=== PATIENT | male | born 1965 | race Caucasian/White ===

== ENCOUNTER 2022-12-17 20:52 | Emergency (ER) | payer SELFPAY ==
[2022-12-17 21:18] LABS: #Basophils 0.1 thou/uL (0.0-0.2); #Eosinphils 0.2 thou/uL (0.0-0.7); #Lymphocytes 2.1 thou/uL (1.20-3.40); #Monocytes 0.4 thou/uL (0.11-0.59); #Neutrophils 3.2 thou/uL (1.40-6.50); %Basophils 1.6 % (0.0-1.0); %Eosinophils 2.9 % (0.0-10.0); %Lymphocytes 35.4 % (21.0-51.0); %Monocytes 7.2 % (0.0-10.0); %Neutrophils 52.9 % (42.0-75.0); Hematocrit 44.1 % (42.0-52.0); Hemoglobin 14.9 g/dL (14.0-18.0); Mean Corpuscular HGB CONC 33.7 g/dL (32.0-36.0); Mean Corpuscular Hemoglobin 33.3 pg (27.0-31.0); Mean Corpuscular Volume 98.9 fl (78.0-98.0); Mean Platelet Volume 7.9 fL (7.4-10.4); Platelet Count 159 10x3/uL (130-400); RBC Distribution Width 11.4 % (11.5-14.5); Red Blood Cell (RBC) Count 4.46 mill/uL (4.70-6.10)
[2022-12-17] MEDS ORDERED: Aspirin Chewable 81 MG TAB ONE (21:18)
[2022-12-17 21:32] LABS: ALT (SGPT) 125 U/L (8-55); AST (SGOT) 122 U/L (5-34); Albumin 3.2 g/dL (3.5-5.0); Alkaline Phosphatase 93 U/L (40-110); Anion Gap 13 mmol/L (10-20); BUN (Urea Nitrogen) 31 mg/dL (8.4-25.7); Bilirubin, Total 0.6 mg/dL (0.2-1.2); Calc. Creatinine Clearance 0 mL/min (70-130); Calcium 8.6 mg/dL (7.8-10.44); Carbon Dioxide 24 mmol/L (22-29); Chloride 105 mmol/L (98-107); Estimated GFR 51; Globulin 3.9 g/dL (2.4-3.5); Glucose 121 mg/dL (70-105); Potassium 3.8 mmol/L (3.5-5.1); Protein, Total 7.1 g/dL (6.0-8.3); Sodium 138 mmol/L (136-145); Troponin I 0.021 ng/mL (< 0.028)
== END 2022-12-17 22:28 | disposition home or self-care (01) ==
LOC: NAV ERS 20:52
DX: R07.89 Other chest pain (principal); F17.210 Nicotine dependence, cigarettes, uncomplicated; M19.90 Unspecified osteoarthritis, unspecified site; M06.9 Rheumatoid arthritis, unspecified
CPT/HCPCS: 71045; 80053; 83880; 84484; 85025; 93005; 94760